=== PATIENT | female | born 2000 | race Caucasian/White ===

== ENCOUNTER 2025-04-05 09:00 | Inpatient (IN) | payer OTHER ==
[~2025-04-05] VITALS: Ht 172.7 cm; Wt 66.2 kg
[2025-04-05] MEDS ORDERED: CALCIUM CARBONATE 500 MG CHEW PO PRN (10:30)
[2025-04-05] MEDS ORDERED: LIDOCAINE HCL 1% 30 ML SDV INJ PRN (10:30)
[2025-04-05] MEDS ORDERED: MAGNESIUM HYDROXIDE/AL HYDROX 30 ML CUP PO PRN (10:30)
[2025-04-05] MEDS ORDERED: LACTATED RINGER'S 1,000 ML IV PRN (10:30)
[2025-04-05] MEDS ORDERED: LACTATED RINGER'S 1,000 ML IV SCH (10:30)
[2025-04-05] MEDS ORDERED: TERBUTALINE SULFATE 1 MG/ML AMP SUB-Q PRN (10:30)
[2025-04-05 10:46] LABS: MCH 30.4 PG (25.6-32.2); MCHC 33.6 g/dL (32.2-35.5); MCV 90.6 fL (79.4-94.8); RBC 4.14 M/uL (3.93-5.22)
[2025-04-05 11:08] LABS: AMPHETAMINES, URINE NEGATIVE (NEGATIVE); BARBITURATES, URINE NEGATIVE (NEGATIVE); BENZODIAZEPINE, URINE NEGATIVE (NEGATIVE); CANNABINOID, URINE NEGATIVE (NEGATIVE); COCAINE, URINE NEGATIVE (NEGATIVE); ECSTASY, URINE NEGATIVE (NEGATIVE); FENTANYL, URINE NEGATIVE (NEGATIVE); METHADONE, URINE NEGATIVE (NEGATIVE); OPIATES, URINE NEGATIVE (NEGATIVE); OXYCODONE, URINE NEGATIVE (NEGATIVE); PHENCYCLIDINE, URINE NEGATIVE (NEGATIVE)
[2025-04-05 11:22] LABS: ABO A; ANTIBODY SCREEN NEGATIVE; RH POSITIVE
[2025-04-05 14:33] LABS: INFLUENZA B NAA NEGATIVE (NEGATIVE); RESPIRATORY SYNCYTIAL VIR NAA NEGATIVE (NEGATIVE)
[2025-04-05] MEDS ORDERED: OXYTOCIN/0.9 % SODIUM CHLORIDE 500 ML IV SCH (16:15)
[2025-04-05] MEDS ORDERED: LACTATED RINGER'S 500 ML IV PRN (18:00)
[2025-04-05] MEDS ORDERED: ePHEDrine sulfate 5 MG/ML SYRINGE IV PRN (18:00)
[2025-04-05] MEDS ORDERED: ROPIVACAINE 0.2% 200 ML BAG EPIDURAL SCH (18:00)
[2025-04-05] MEDS ORDERED: LACTATED RINGER'S 2,000 ML IV ONE (18:00)
[2025-04-06] MEDS ORDERED: MAGNESIUM HYDROXIDE/AL HYDROX 30 ML CUP PO PRN (03:45)
[2025-04-06] MEDS ORDERED: BENZOCAINE 60 ML AEROSOL TOP PRN (03:45)
[2025-04-06] MEDS ORDERED: LIDOCAINE 2% VISCOUS 6 ML SYR TOP ONE ×2 (03:45)
[2025-04-06] MEDS ORDERED: WITCH HAZEL/GLYCERIN 1 EA PAD TOP PRN (03:45)
[2025-04-06] MEDS ORDERED: OXYTOCIN/0.9 % SODIUM CHLORIDE 500 ML IV SCH (03:45)
[2025-04-06] MEDS ORDERED: ACETAMINOPHEN 325 MG TAB PO PRN (03:45)
[2025-04-06] MEDS ORDERED: IBUPROFEN 600 MG TAB PO PRN (03:45)
[2025-04-06] MEDS ORDERED: CALCIUM CARBONATE 500 MG CHEW PO PRN (03:45)
[2025-04-06] MEDS ORDERED: HYDROCORTISONE ACETATE 25 MG SUPP PR PRN (03:45)
[2025-04-06] MEDS ORDERED: MAGNESIUM HYDROXIDE 30 ML UDC PO PRN (03:45)
[2025-04-06] MEDS ORDERED: SENNOSIDES/DOCUSATE 1 EA TAB PO SCH (09:00)
== END 2025-04-07 10:50 | disposition home or self-care (01) | DRG 805 ==
LOC: FBCO 09:00 → FBC 09:15
PROVIDERS: ADMIT Advanced Practice Midwife; ATTEND Advanced Practice Midwife
PROC: 4A1HXCZ Monitoring of Products of Conception, Cardiac Rate, External Approach (ICD-10-PCS; 2025-04-05)
PROC: 10E0XZZ Delivery of Products of Conception, External Approach (ICD-10-PCS; principal; 2025-04-06)
DX: O98.52 Other viral diseases complicating childbirth (principal); U07.1 COVID-19; Z37.0 Single live birth; Z3A.36 36 weeks gestation of pregnancy; O76 Abnormality in fetal heart rate and rhythm complicating labor and delivery; O69.81X0 Labor and delivery complicated by cord around neck, without compression, not applicable or unspecified; Z88.0 Allergy status to penicillin
CPT/HCPCS: 01960; 36415; 80307; 85027; 86850; 86900; 86901; 87502; A9270; J7121; U0002